=== PATIENT | female | born 2005 | race Caucasian/White ===

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

== ENCOUNTER → 2023-08-11 | Outpatient (CLI) | payer OTHER ==
[~2023-08-11] MED LIST changes: +ABILIFY MYCITE5 M2 PO; +ALBU90OI INH; +OMEP20ER PO; +PROM25 PO; +SERT50 PO
[2023-08-13 18:07] LABS: CHLAMYDIA TRACHOMATIS, NAA Negative (Negative)
== END ==
LOC: LAB SHORT 11:00 → LAB 11:00
PROVIDERS: Physician Assistant Medical
DX: R10.2 Pelvic and perineal pain (principal)
CPT/HCPCS: 87491; 87591

== ENCOUNTER → 2023-09-16 | Outpatient (CLI) | payer OTHER ==
[2023-09-19 18:16] LABS: APTIMA MEDIA TYPE Unisex Swab; C. TRACHOMATIS BY TMA Negative (Negative); N. GONORRHOEAE BY TMA Negative (Negative); SPECIMEN SOURCE Cervical/Vag
== END ==
LOC: LAB SHORT 17:54 → LAB 17:54
PROVIDERS: Obstetrics & Gynecology
DX: Z11.3 Encounter for screening for infections with a predominantly sexual mode of transmission (principal)
CPT/HCPCS: 87491; 87591

== ENCOUNTER → 2024-01-27 | Outpatient (CLI) | payer OTHER | END | disposition home or self-care (01) | LOC: LAB EV 17:37 → LAB SHORT 17:37 | DX: Z11.3 Encounter for screening for infections with a predominantly sexual mode of transmission (principal); N76.0 Acute vaginitis; R30.0 Dysuria ==

== ENCOUNTER 2024-02-01 10:39 | Emergency (ER) | payer OTHER ==
[~2024-02-01] VITALS: Ht 167.6 cm; Wt 61.2 kg
[2024-02-01 10:48] VITALS: BP 126/86
[2024-02-01] MEDS ORDERED: AMOX500 PO (11:35)
[2024-02-01] MEDS ORDERED: FLUOXETINE HCL10 MG PO (11:35)
[2024-02-01 11:53] LABS: Source, Urine Clean Catch
[2024-02-01 12:05] LABS: Bilirubin, Urine Neg (Neg); Blood, Urine 3+ (Neg); Glucose Qualitative, Urine Neg (Neg); Ketones, Urine Neg (Neg); Leukocyte Esterase, Urine Neg (Neg); Nitrite, Urine Neg (Neg); Protein, Urine Neg (Neg); Specific Gravity, Urine 1.025 (1.003-1.022); Urobilinogen, Urine NORM (Normal)
[2024-02-01 12:16] LABS: Appearance, Urine Hazy (Clear); Bacteria Few /hpf; Color, Urine Yellow (P-Yellow); Squamous Epithelial Cells Many /hpf (Few); White Blood Cells, Urine 0-2 /hpf (0-5)
[2024-02-01 12:29] LABS: Albumin, Blood 3.7 g/dL (3.4-5.0); Bilirubin, Total 0.3 mg/dL (0.1-1.0); Bun/Creatinine Ratio 39.6 (12.0-20.0); Creatinine, Blood 0.38 mg/dL (0.40-1.00); Globulin, Blood 3.6 g/dL (2.2-4.0); Potassium, Blood 4.3 mmol/L (3.5-5.5); Total Protein, Blood 7.3 g/dL (6.4-8.2)
== END 2024-02-01 12:55 | disposition home or self-care (01) ==
LOC: ER 10:39
PROVIDERS: Student in an Organized Health Care Education/Training Program
DX: R42 Dizziness and giddiness (principal); Z79.2 Long term (current) use of antibiotics; Z79.899 Other long term (current) drug therapy
CPT/HCPCS: 80053; 81001; 81025; 87086; 93005; 93010; 99284-25

== ENCOUNTER 2024-07-20 19:29 | Emergency (ER) | payer OTHER ==
[~2024-07-20] VITALS: Ht 167.6 cm; Wt 59.0 kg
[~2024-07-20 19:29] MED LIST changes: +AMOX500 PO; +FLUOXETINE HCL10 MG PO
[2024-07-20 19:36] VITALS: BP 152/82
== END 2024-07-20 20:46 | disposition home or self-care (01) ==
LOC: ER 19:29
DX: S90.31XA Contusion of right foot, initial encounter (principal); X50.1XXA Overexertion from prolonged static or awkward postures, initial encounter; Z79.899 Other long term (current) drug therapy
CPT/HCPCS: 73630; 99283-25

== ENCOUNTER → 2024-10-01 | Outpatient (CLI) | payer OTHER ==
[2024-10-01 16:26] LABS: Source, Urine Clean Catch
[2024-10-01 18:44] LABS: Appearance, Urine Clear (Clear); Bilirubin, Urine Neg (Neg); Blood, Urine 2+ (Neg); Color, Urine Yellow (P-Yellow); Glucose Qualitative, Urine Neg (Neg); Ketones, Urine Neg (Neg); Leukocyte Esterase, Urine Neg (Neg); Nitrite, Urine Neg (Neg); Protein, Urine Neg (Neg); Urobilinogen, Urine NORM (Normal)
[2024-10-01 19:04] LABS: Bacteria Few /hpf; Squamous Epithelial Cells Few /hpf (Few); White Blood Cells, Urine 0-2 /hpf (0-5)
[2024-10-06 05:17] LABS: C. TRACHOMATIS BY TMA,THINPREP Negative (Negative); N. GONORRHOEAE BY TMA,THINPREP Negative (Negative); SPECIMEN SOURCE CERVIX
== END ==
LOC: LAB 16:03 → LAB SHORT 16:03
PROVIDERS: Obstetrics & Gynecology
DX: Z01.419 Encounter for gynecological examination (general) (routine) without abnormal findings (principal); Z11.3 Encounter for screening for infections with a predominantly sexual mode of transmission; R35.0 Frequency of micturition
CPT/HCPCS: 81001; 87491; 87591; G0123

== ENCOUNTER → 2025-01-05 | Outpatient (CLI) | payer OTHER ==
[2025-01-05 15:24] LABS: BASOPHILS ABSOLUTE AUTO 0.05 K/mm3 (0.00-0.23); BASOPHILS PERCENT AUTO 1 % (0-2); EOSINOPHILS ABSOLUTE AUTO 0.35 K/mm3 (0.00-0.68); EOSINOPHILS PERCENT AUTO 5 % (0-6); Hematocrit 40.1 % (33.0-51.0); Hemoglobin 13.5 g/dL (11.5-16.0); IMMATURE GRAN ABSOLUTE AUTO 0.01 K/mm3 (0.00-0.10); IMMATURE GRAN PERCENT AUTO 0 % (0-1); LYMPHOCYTES ABSOLUTE AUTO 1.98 K/mm3 (0.84-5.20); LYMPHOCYTES PERCENT AUTO 30 % (21-46); MONOCYTES ABSOLUTE AUTO 0.43 K/mm3 (0.16-1.47); MONOCYTES PERCENT AUTO 7 % (4-13); Mean Corpuscular HGB 30.9 pg (26.0-34.0); Mean Corpuscular HGB Conc 33.7 g/dL (31.5-36.5); Mean Corpuscular Volume 92 fL (80-100); NEUTROPHILS ABSOLUTE AUTO 3.76 K/mm3 (1.96-9.15); NEUTROPHILS PERCENT AUTO 57 % (41-73); Platelet Count 258 K/mm3 (150-400); RDW Coefficient Variation 12.5 % (11.7-14.2); RDW Standard Deviation 41.7 fL (35.1-46.3); Red Blood Cell Count 4.37 M/mm3 (3.80-5.20); White Blood Cell Count 6.58 K/mm3 (4.00-11.30)
[2025-01-05 15:30] LABS: Bun/Creatinine Ratio 14.5 (12.0-20.0); Calcium, Blood 9.3 mg/dL (8.5-10.1); Creatinine, Blood 0.62 mg/dL (0.40-1.00); Potassium, Blood 3.5 mmol/L (3.5-5.5)
== END ==
LOC: LAB SHORT 15:20 → LAB 15:20
PROVIDERS: Family Medicine
DX: R42 Dizziness and giddiness (principal); R55 Syncope and collapse
CPT/HCPCS: 80048; 85025

== ENCOUNTER → 2025-07-25 | Outpatient (CLI) | payer OTHER ==
[2025-07-25 21:42] LABS: Bacterial Vaginosis PCR Negative (NEGATIVE); Candida glabrata-krusei, PCR NOT DETECTED (NOT DETECT)
[2025-07-25 22:37] LABS: Candida Group, PCR DETECTED (NOT DETECT)
[2025-07-30 08:54] LABS: APTIMA MEDIA TYPE Unisex Swab; C. TRACHOMATIS BY TMA Negative (Negative); N. GONORRHOEAE BY TMA Negative (Negative); T. VAGINALIS BY TMA Positive (Negative)
[2025-07-30 18:05] LABS: HSV SUBTYPE SOURCE Genital
== END ==
LOC: LAB 19:00 → LAB SHORT 19:00
PROVIDERS: Physician Assistant
DX: Z01.89 Encounter for other specified special examinations (principal); Z91.89 Other specified personal risk factors, not elsewhere classified
CPT/HCPCS: 81515; 87491; 87529; 87591; 87661

== ENCOUNTER 2025-08-19 06:30 | Emergency (ER) | payer OTHER ==
[~2025-08-19] VITALS: Ht 170.2 cm; Wt 59.0 kg
[2025-08-19] MEDS ORDERED: Ondansetron HCl 2 MG / ML 2ML Vial IV PRN (07:15)
[2025-08-19 07:23] LABS: BASOPHILS ABSOLUTE AUTO 0.05 K/mm3 (0.00-0.23); BASOPHILS PERCENT AUTO 0 % (0-2); EOSINOPHILS ABSOLUTE AUTO 0.00 K/mm3 (0.00-0.68); EOSINOPHILS PERCENT AUTO 0 % (0-6); Hematocrit 45.5 % (33.0-51.0); Hemoglobin 15.6 g/dL (11.5-16.0); IMMATURE GRAN ABSOLUTE AUTO 0.09 K/mm3 (0.00-0.10); IMMATURE GRAN PERCENT AUTO 1 % (0-1); LYMPHOCYTES ABSOLUTE AUTO 0.86 K/mm3 (0.84-5.20); LYMPHOCYTES PERCENT AUTO 4 % (21-46); MONOCYTES ABSOLUTE AUTO 0.57 K/mm3 (0.16-1.47); MONOCYTES PERCENT AUTO 3 % (4-13); Mean Corpuscular HGB Conc 34.3 g/dL (31.5-36.5); Mean Corpuscular Volume 87 fL (80-100); NEUTROPHILS ABSOLUTE AUTO 18.08 K/mm3 (1.96-9.15); NEUTROPHILS PERCENT AUTO 92 % (41-73); NRBC ABSOLUTE 0.00 K/mm3 (0.00-0.02); NRBC Auto 0.0 /100 WBC (0.0-0.2); Platelet Count 253 K/mm3 (150-400); RDW Coefficient Variation 12.1 % (11.7-14.2); RDW Standard Deviation 38.7 fL (35.1-46.3)
[2025-08-19] MEDS ORDERED: NS 1,000 ML IV SCH (07:30)
[2025-08-19 07:42] LABS: Alanine Aminotransfer (ALT/SGP 69.0 U/L (12-78); Albumin, Blood 4.5 g/dL (3.4-5.0); Albumin/Globulin Ratio 1.0 (0.8-1.8); Anion Gap 12.0 mmol/L (3-11); Aspartate Aminotrans (AST/SGOT 46.0 U/L (12-37); Bilirubin, Total 0.4 mg/dL (0.1-1.0); Blood Urea Nitrogen 19.0 mg/dL (8-24); CO2, Blood 22.0 mmol/L (21-32); Calcium, Blood 9.7 mg/dL (8.5-10.1); Chloride, Blood 109.0 mmol/L (98-108); Creatinine, Blood 0.4 mg/dL (0.40-1.00); Globulin, Blood 4.3 g/dL (2.2-4.0); Glucose, Blood 147.0 mg/dL (70-99); Potassium, Blood 3.5 mmol/L (3.5-5.5); Sodium, Blood 139.0 mmol/L (136-145); Total Protein, Blood 8.8 g/dL (6.4-8.2)
[2025-08-19 09:05] VITALS: BP 109/77
== END 2025-08-19 09:13 | disposition home or self-care (01) ==
LOC: ER 06:30
PROVIDERS: Emergency Medicine
DX: R11.2 Nausea with vomiting, unspecified (principal); F10.90 Alcohol use, unspecified, uncomplicated
CPT/HCPCS: 80053; 83690; 84703; 85025; 96361; 96374; 99283-25; J2405; J7030